=== PATIENT | female | born 1955 | race Caucasian/White ===

== ENCOUNTER 2023-01-20 09:06 | Day surgery (SDC) | payer MEDICARE, SELFPAY ==
--- NOTE | 2023-01-20 | PATH_ITS ---
[facility] Accession Number: [id number] No. of containers..06 Tissue . 01 Material submitted: . PART A: duodenum - DUODENAL PART B: gastrointestinal site - GASTRIC PART C: esophagus, E-G Junction - GE JUNCTION PART D: esophagus - ESOPHAGEAL PART E: colon - RIGHT COLON POLYP PART F: sigmoid colon - SIGMOID POLYP . 01 Diagnosis: A. Duodenum, Biopsy: Duodenal mucosa with no diagnostic abnormality. Negative for active inflammation, features of sprue, dysplasia, or malignancy. . B. Gastric, Biopsy: Gastric mucosa with minimal chronic nonspecific inflammation. No Helicobacter pylori organisms identified on immunohistochemical evaluation. No intestinal metaplasia, dysplasia, or malignancy identified. . C. Gastroesophageal Junction, Biopsy: Squamocolumnar junctional mucosa with focal multilayering. No goblet cell metaplasia identified on AB/PAS stain. No fungal organisms identified on AB/PAS stain, with control staining appropriately. No dysplasia or malignancy. . D. Esophagus, Biopsy: Squamous epithelium with no diagnostic abnormality. Intraepithelial eosinophils are not increased. Negative for dysplasia and malignancy. . E. Right Colon Polyp: Sessile serrated adenoma. . F. Sigmoid Colon Polyp, Biopsy: Hyperplastic polyp. [facility] 01/26/2023 1354 Local . 01 Comment: C. The presence of focal multilayered epithelium indicates early columnar metaplasia; however, no definite goblet cell metaplasia is seen in these biopsies. . 01 Electronically signed: . Radha Lino MD, Pathologist NPI- [id number] . 01 Gross description: . Part A: DUODENAL: Received in formalin is multiple fragment(s) of anaya, soft tissue measuring 0.5 x 0.3 x 0.1 cm in aggregate submitted entirely in 1 cassette(s) Part B: GASTRIC: Received in formalin is 2 fragment(s) of anaya, soft tissue measuring 0.3 x 0.2 x 0.2 cm to 0.3 x 0.2 x 0.1 cm submitted entirely in 1 cassette(s) Part C: GE JUNCTION: Received in formalin is 1 fragment(s) of anaya, soft tissue measuring 0.3 x 0.2 x 0. cm submitted entirely in 1 cassette(s) Part D: ESOPHAGEAL: Received in formalin is 1 fragment(s) of anaya, soft tissue measuring 0.3 x 0.2 x 0.1 cm submitted entirely in 1 cassette(s) Part E: RIGHT COLON POLYP: Received in formalin is 1 fragment(s) of anaya, soft tissue measuring 1.8 x 0.8 x 0.7 cm to 0.8 x 0.6 x 0.3 cm which is bisected and submitted entirely in 1 cassette(s) Part F: SIGMOID POLYP: Received in formalin is 3 fragment(s) of anaya, soft tissue measuring 1.8 x 0.8 x 0.7 cm to 0.5 x 0.3 x 0.2 cm which are acordingly to the size sectioned and submitted separatly in 3 cassette(s) /AA 01/21/2023 0630 Local . 01 Microscopic: . B. An immunohistochemical stain was performed to evaluate for Helicobacter organisms and is negative. The control stain showed appropriate reactivity. . * This test was developed and its performance characteristics determined by [facility]. It has not been cleared or approved by the [place]. Food and Drug Administration. The FDA has determined that such clearance or approval is not necessary. This test is used for clinical purposes. It should not be regarded as investigational or for research. . 01 Pathologist provided ICD-10: K29.30, K21.9, D12.2, D12.5 . 01 CPT . 463187, 253622, 561151, 711426, 961779, 642428, [id number], 501918 Performed at: 01 [facility] [address] [place] [address] [address], [place], [place] [id number] MD Terrell Mcgraw MD Phone: [phone]
[2023-01-20 09:30] VITALS: BP 125/79; PULSE 100; RESP 17; TEMP 36.9; O2SAT 94; BMI 36.5
--- NOTE | 2023-01-20 10:06 | PM.OP.EC ---
Operative Date/Time/Diagnoses Date of procedure: 01/20/23 Pre-op diagnosis: See indication and findings Procedure & Clinicians Study performed: EGD and colonoscopy Indications: GE reflux, anemia, and need for colorectal cancer screening Surgeon: Adrian Maxwell Procedure Notes Procedure in detail: After informed consent was obtained the patient was placed in left lateral decubitus position. The video upper scope was placed into the oropharynx and with the patient's help swallowed into the esophagus. The esophagus stomach and duodenum were carefully examined. On withdrawal retroflexed view the GE junction was performed. The scope was removed. The patient tolerated procedure well. The video colonoscope was placed in the rectum slowly advanced to the cecum. Preparation was good. On slow withdrawal mucosa was carefully examined. The scope was removed. The patient tolerated procedure well. Blood loss none Complications none Sedation mac Findings EGD 1. Mid to distal esophagus with faint circumferential rings. Biopsies taken to rule out eosinophilic esophagitis 2. Two small islands of pink glandular tissue at the GE junction located at 33 cm from the incisors. These were biopsied to rule out Junior's esophagus 3. Hiatal hernia with the diaphragmatic hiatus at 40 cm defining a 7 cm hiatal hernia. 4. Striped gastric erythema in the antrum. Biopsies taken to rule out Helicobacter 5. Normal duodenal bulb and sweep biopsies taken to rule out celiac Colonoscopy 1. 1.2 cm flat polyp with a mucoid cap consistent with a sessile serrated adenoma noted in the mid right colon. See injected with spot 2 cc and then epinephrine [id number] 1 cc. This was then removed with Endo cut current. It appeared to be completely removed. 2. 4 cm lobulated semi pedunculated polyp at 30 cm in the sigmoid colon. This was also injected with spot 2 cc followed by 1 cc epinephrine [id number]. Three large pieces were removed. It appeared to be completely removed. 3. Two other small polyps may have been seen initially. These can be addressed when she returns for follow-up colonoscopy in 3-6 months Will await all biopsies here before deciding next steps.
[2023-01-20 11:34] VITALS: BP 115/73; PULSE 94; RESP 19; TEMP 36.3; O2SAT 87
[2023-01-20 11:38] VITALS: BP 117/81; PULSE 92; RESP 12; O2SAT 92
[2023-01-20 11:43] VITALS: BP 106/62; PULSE 90; RESP 17; O2SAT 90
--- NOTE | 2023-01-20 11:48 | SUR.PHASEI ---
Patient reported feeling weak for the past couple of days. Denied fever.
[2023-01-20 11:49] VITALS: BP 117/70; PULSE 86; RESP 15; TEMP 36.9; O2SAT 92
[2023-01-20 11:52] VITALS: BP 122/66; PULSE 82; RESP 24; O2SAT 92
== END 2023-01-20 12:14 | disposition home or self-care (01) ==
PROVIDERS: Referring Provider Internal Medicine Gastroenterology; Visit Provider Internal Medicine Gastroenterology
PROC: 0DJ08ZZ Inspection of Upper Intestinal Tract, Via Natural or Artificial Opening Endoscopic (ICD-10-PCS; CPT 43235; principal; 2023-01-20 10:30)
PROC: 0DJD8ZZ Inspection of Lower Intestinal Tract, Via Natural or Artificial Opening Endoscopic (ICD-10-PCS; CPT 45378; 2023-01-20 10:30)
DX: D64.9 Anemia, unspecified (principal); K21.9 Gastro-esophageal reflux disease without esophagitis; K29.50 Unspecified chronic gastritis without bleeding; K44.9 Diaphragmatic hernia without obstruction or gangrene; D12.2 Benign neoplasm of ascending colon; K63.5 Polyp of colon
CPT/HCPCS: 45381; 45384; 43239; J2704

== ENCOUNTER → 2024-09-14 09:47 | Outpatient (CLI) | payer MEDICARE, SELFPAY ==
--- NOTE | 2024-09-14 09:50 | DI.NM.S_ITS ---
PROCEDURE: NM BONE SCAN WHOLE BODY RADIOPHARMACEUTICAL: 22 mCi Tc-99m MDP IV. INDICATIONS: Lesion of bone of thoracic spine TECHNIQUE: Delayed whole-body scintigrams were obtained approximately 3-4 hours after intravenous injection of radiotracer. Anterior and posterior views were acquired from vertex to feet. Additional left and right oblique views of the thorax were obtained. COMPARISON: MR 07/06/2024, CT 04/27/2024. FINDINGS: Degenerative uptake noted within the shoulders. Uptake in the right medial 1st rib. No uptake in the thoracic spine. IMPRESSION: Abnormal uptake in the medial 1st rib, with corresponding sclerotic lesion with bony expansion noted on comparison CT. Consider tissue sampling. Dictated by: Huy Cleveland M.D. on 09/14/2024 at 16:08 Approved by: Huy Cleveland M.D. on 09/14/2024 at 16:25
== END ==
PROVIDERS: PCP Family Medicine; Referring Provider Internal Medicine Medical Oncology; Visit Provider Internal Medicine Medical Oncology
DX: M89.9 Disorder of bone, unspecified (principal); D47.3 Essential (hemorrhagic) thrombocythemia
CPT/HCPCS: 78306; A9503